=== PATIENT | female | born 1995 | race African-American/Black ===

== ENCOUNTER 2023-10-12 10:54 | Emergency (ER) | payer OTHER ==
[~2023-10-12] VITALS: Ht 167.6 cm; Wt 64.4 kg
[2023-10-12] MEDS ORDERED: PROTONIX40 MG PO (11:02)
[2023-10-12] MEDS ORDERED: FAMOtidine 10 MG/ML (4ML VIAL) IV STA (11:26)
[2023-10-12] MEDS ORDERED: ONDANSETRON HCL 2 MG/ML VIAL IV STA (11:27)
[2023-10-12 11:53] LABS: HEMATOCRIT 38.3 % (36.0-45.00); MEAN CELL VOLUME 90.7 fL (80.00-100.00); MEAN CORPUSCULAR HEMOGLOBIN 30.7 pg (27.00-32.0); MEAN CORPUSCULAR HGB CONC 33.8 g/dl (32.0-36.0); PLATELET COUNT 198 K/uL (150-450); RED BLOOD COUNT 4.22 M/uL (4.00-6.00); RED CELL DISTRIBUTION WIDTH 14.2 % (11.5-14.5)
[2023-10-12 12:15] LABS: CALCIUM 10.3 mg/dL (8.5-10.1); CREATININE SERUM 0.95 mg/dL (0.55-1.02); GFR 69.55; POTASSIUM 3.26 mEq/L (3.5-5.1)
[2023-10-12 12:23] LABS: URINE APPEARANCE Cloudy; URINE BILIRRUBIN Small (NEGATIVE); URINE BLOOD Trace; URINE COLOR Dark Yellow; URINE GLUCOSE Negative (NEGATIVE); URINE LEUKOCYTE Trace; URINE NITRATE Negative
[2023-10-12 12:54] LABS: URINE BACTERIA 622.4 uL (0.0-1933); URINE EPITHELIAL CELLS 128.9 uL (0.0-38.8); URINE RBC 15.3 uL (0.0-20.8); URINE WBC 13.4 uL (0.0-23.2)
[2023-10-12 13:19] LABS: URINE PROTEIN 300 (NEGATIVE)
[2023-10-12 13:20] LABS: URINE MUCUS HEAVY
[2023-10-12] MEDS ORDERED: RINGERS SOLUTION,LACTATED 500 ML IV SCH (14:15)
[2023-10-12] MEDS ORDERED: PROMETHAZINE HCL 50 MG/ML AMPUL IM ONE (16:00)
[2023-10-12] MEDS ORDERED: CARAFATE1 GM PO (19:13)
== END 2023-10-12 21:27 | disposition home or self-care (01) ==
LOC: ER 10:54
PROVIDERS: General Practice
DX: R10.13 Epigastric pain (principal)
CPT/HCPCS: 36415; 96365; 96372; 99283; J2250; J2405; J3490